=== PATIENT | female | born 1935 | race Caucasian/White ===

== ENCOUNTER → 2018-01-16 | Outpatient (CLI) | payer MEDICARE ==
--- NOTE | 2018-01-16 15:54 | WOMENS IMAGING REPORT ---
EXAM DESCRIPTION: BONE DENSITY HIP/SPINE COMPLETED DATE/TIME: 01/16/2018 12:49 pm REASON FOR STUDY: OSTEOPOROSIS Z12.31 ENCNTR SCREEN MAMMOGRAM FOR MALIGNANT NEOPLASM OF TRISTAN M81.0 AGE-RELATED OSTEOPOROSIS W/O CURRENT PATHOLOGICAL FRAC COMPARISON: None. TECHNIQUE: Dual-Energy X-ray Absorptiometry (DEXA) of the AP Spine and Hip. LIMITATIONS: None. FINDINGS: LUMBAR SPINE: The bone mineral density (BMD) measured from L1-L4 in the AP projection correlates with a T-score of -2.2, which is osteopenia as defined by the World Health Organization. HIP: The bone mineral density (BMD) measured in the left hip correlates with a T-score of -3.7 in the femo ral neck, which is osteoporosis as defined by the World Health Organization. IMPRESSION: 1. LUMBAR SPINE: OSTEOPENIA. 2. HIP: OSTEOPOROSIS. COMMENT: The World Health Organization defines low BMD as follows: T-score: Normal: Greater than -1.0 Osteopenia: Between -1.0 and -2.5 Osteoporosis: Less than -2.5 without fractures Established osteoporosis: Less than -2.5 with fractures In general, you may wish to consider: Diagnosis Treatment Follow-up DEXA Normal BMD Prevention 2-3 years Osteopenia Prevention/Therapy 1-2 years Osteoporosis Therapy Yearly TECHNICAL DOCUMENTATION: JOB ID: [id number]- All Rights Reserved Reading location - IP/workstation name: [email or web address]
--- NOTE | 2018-01-16 16:17 | WOMENS IMAGING REPORT ---
EXAM DESCRIPTION: 3D SCREENING MAMMO BILAT COMPLETED DATE/TIME: 01/16/2018 12:49 pm REASON FOR STUDY: SCREENING MAMMO Z12.31 ENCNTR SCREEN MAMMOGRAM FOR MALIGNANT NEOPLASM OF TRISTAN M81. 0 AGE-RELATED OSTEOPOROSIS W/O CURRENT PATHOLOGICAL FRAC COMPARISON: None. TECHNIQUE: Standard craniocaudal and mediolateral oblique views of each breast recorded using digita l acquisition and breast tomosynthesis. LIMITATIONS: None. FINDINGS: RIGHT BREAST MASSES: Irregular spiculated mass in the upper-outer breast, located 10 to 12 cm from the nipple. CALCIFICATIONS: No new or suspicious calcifications. ARCHITECTURAL DISTORTION: None. DEVELOPING DENSITY: None. ASYMMETRY: None noted. OTHER: No other significant findings. LEFT BREAST MASSES: No suspicious masses. CALCIFICATIONS: No new or suspicious calcifications. ARCHITECTURAL DISTORTION: None. DEVELOPING DENSITY: None. ASYMMETRY: None noted. OTHER: No other significant findings. Read with the assistance of CAD. .[facility] - R2 Cenova Version 1.3 .[facility] Imaging - R2 Cenova Version 1.3 .[facility] - R2 Cenova Version 2.4 .[facility] - R2 Cenova Version 2.4 .[facility] - R2 Elevator Operator Version 9.2 IMPRESSION: Irregular spiculated mass in the upper-outer right breast. No worrisome mammographic fi ndings in the left breast. BREAST DENSITY: b. There are scattered areas of fibroglandular density. BIRAD: 0 Incomplete: Needs Additional Imaging Evaluation and/or prior Mammograms for Comparison. RECOMMENDATION: RECOMMENDED FOLLOW-UP: Recommend additional evaluation with ultrasound of the right breast. Recommend routine screening mammography of the left breast. The patient will be contacted for additional imaging. COMMENT: The patient has been notified of the results by letter per [place] requirements. Additional no tification policies are in place for contacting patient with suspicious or incomplete findings. Quality ID #225: The [employer] recommends an annual screening mammogram for women aged 40 years or over. This facility utilizes a reminder system to ensure that all patients receive reminder letters, and/or direct phone calls for appointments. This includes reminders for routine scr eening mammograms, diagnostic mammograms, or other Breast Imaging Interventions when appropriate. Th is patient will be placed in the appropriate reminder system. The [employer] (ACR) has developed recommendations for screening MRI of the breast s in certain patient populations, to be used in conjunction with mammography. Breast MRI surveillanc e may be appropriate for women with more than 20% lifetime risk of developing breast cancer as deter mined by genetic testing, significant family history of the disease, or history of mantle radiation f or Hodgkins Disease. ACR Practice Guidelines 2008. DBT Technology DBT is a type of tomographic mammography. With conventional mammography, overlapping breast tissue ma y make lesions difficult to detect, even with good compression. DBT uses an x-ray tube that rotates a round the breast, taking images at different angles. These images are then combined to create thin sl ices of the breast that the radiologist can view as a 3D reconstruction. The [employer] unit can perform full-field digital mammograms (2D imaging); or DBT (3D imaging); or both, in a combination mode that quickly performs both the mammogram and the tomosynthesis scan while the breast is still compressed. PQRS 6045F: Fluoroscopic imaging is not utilized for breast tomosynthesis. TECHNICAL DOCUMENTATION: FINDING NUMBER: (1) ASSESSMENT: (1) JOB ID: [id number] [employer]- All Rights Reserved Reading location - IP/workstation name: [facility]
== END ==
LOC: WI 11:22
PROVIDERS: ATTEND Physician Assistant
DX: Z12.31 Encounter for screening mammogram for malignant neoplasm of breast (principal); M81.0 Age-related osteoporosis without current pathological fracture
CPT/HCPCS: 77063; 77067; 77080

== ENCOUNTER → 2018-01-23 | Outpatient (CLI) | payer MEDICARE ==
--- NOTE | 2018-01-23 14:47 | RADIOLOGY REPORT (SQ) ---
EXAM DESCRIPTION: HIP LEFT AP/LATERAL COMPLETED DATE/TIME: 01/23/2018 1:54 pm REASON FOR STUDY: LOWER ABDOMINAL PAIN, UNSPECIFIED R10.30 LOWER ABDOMINAL PAIN, UNSPECIFIED COMPARISON: None. NUMBER OF VIEWS: Two views. TECHNIQUE: AP pelvis and additional frog-leg view of the left hip. LIMITATIONS: None. FINDINGS: MINERALIZATION: Normal. LEFT HIP: Slight to mild narrowing of the left hip joint. No acute fracture dislocation. RIGHT HIP: Mild narrowing of the right joint. No acute fracture or dislocation. PUBIS AND ISCHIUM: No fracture. PELVIS: No fracture. SACRUM: No fracture or dislocation. No worrisome bone lesions. 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 SOFT TISSUES: No findings. OTHER: No other significant finding. IMPRESSION: 1 Mild narrowing of the hip joints, more so on the right. 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 3 No acute osseous findings. TECHNICAL DOCUMENTATION: JOB ID: [id number] [employer]- All Rights Reserved Reading location - IP/workstation name: [email or web address]
== END ==
LOC: OD 13:37
PROVIDERS: ATTEND Physician Assistant
DX: R10.30 Lower abdominal pain, unspecified (principal); M47.896 Other spondylosis, lumbar region

== ENCOUNTER → 2018-01-23 | Outpatient (CLI) | payer MEDICARE ==
--- NOTE | 2018-01-24 08:03 | WOMENS IMAGING REPORT ---
EXAM DESCRIPTION: U/S BREAST UNILAT LIMITED COMPLETED DATE/TIME: 01/23/2018 11:29 am REASON FOR STUDY: RIGHT BREAST LUMP N63.11 UNSPECIFIED LUMP IN THE RIGHT BREAST, UPPER OUTER PRIMITIVO COMPARISON: Tomosynthesis 01/16/2018 TECHNIQUE: Real-time and static grayscale imaging performed of the right breast targeted to the area of clinical/mammographic concern. Selected color Doppler images recorded. LIMITATIONS: None. FINDINGS: In the lateral right breast 9 to 10 o'clock position, a hypoechoic solid nodule is present with ill-defined spiculated margins right middle lobe internal color flow, 10 x 8 mm in size. This is highly suspicious for malignancy and correlates with the nodule described far lateral right breast on tomosynthesis 01/16/2018. Ultrasound-guided core biopsy and post biopsy clip placement is recommended. Findings were discussed with Bijal Mejia, 1100 hours 01/23/2018. IMPRESSION: 9 to 10 mm nodule right breast laterally at the 9 to 10 o'clock position. Highly suspic ious for malignancy. Ultrasound-guided core biopsy recommended BIRAD: 5 Highly suggestive of malignancy. Appropriate action should be taken. RECOMMENDATION: RECOMMENDED FOLLOW-UP: Ultrasound-guided core biopsy, post biopsy clip placement and immediate post biopsy follow-up two-view mammogram recommended. COMMENT: Pertinent findings on the imaging study reported as a CRITICAL RESULT to BIJAL Emerson [id number] hours on 01/23/2018. Category of Critical Result: BI-RADS 5 The [employer] (ACR) has developed recommendations for screening MRI of the breast s in certain patient populations, to be used in conjunction with mammography. Breast MRI surveillanc e may be appropriate for women with more than 20% lifetime risk of developing breast cancer as deter mined by genetic testing, significant family history of the disease, or history of mantle radiation f or Hodgkins Disease. ACR Practice Guidelines 2007. TECHNICAL DOCUMENTATION: JOB ID: [id number] [employer]- All Rights Reserved Reading location - IP/workstation name: [email or web address]
== END ==
LOC: WI 10:43
PROVIDERS: ATTEND Physician Assistant
DX: N63.11 Unspecified lump in the right breast, upper outer quadrant (principal)
CPT/HCPCS: 76642

== ENCOUNTER → 2018-08-03 | Outpatient (CLI) | payer MEDICARE ==
[2018-08-03 12:45] LABS: ANION GAP 7 (5-19); BLOOD UREA NITROGEN 16 mg/dL (7-20); CALCIUM 9.8 mg/dL (8.4-10.2); CARBON DIOXIDE 30 mmol/L (22-30); CHLORIDE 102 mmol/L (98-107); GLUCOSE 104 mg/dL (75-110); POTASSIUM 5.6 mmol/L (3.6-5.0); SODIUM 139.4 mmol/L (137-145)
== END ==
LOC: OD 11:33
PROVIDERS: ATTEND Family Medicine
DX: E87.5 Hyperkalemia (principal)
CPT/HCPCS: 36415; 80048

== ENCOUNTER → 2018-09-27 | Outpatient (CLI) | payer MEDICARE ==
--- NOTE | 2018-09-27 13:47 | WOMENS IMAGING REPORT ---
EXAM DESCRIPTION: 3D DX MAMMO RIGHT UNILAT COMPLETED DATE/TIME: 09/27/2018 1:34 pm REASON FOR STUDY: BREAST CANCER C50.411 MALIG NEOPLM OF UPPER-OUTER QUADRANT OF RIGHT FEMALE COMPARISON: None. TECHNIQUE: Standard craniocaudal and mediolateral oblique images of the breast recorded using digita l acquisition and breast tomosynthesis. Additional compression cone views right breast in the CC and MLO orientations. Additional right [address] mediolateral view. Patient underwent core needle biopsy at Dr. Kelley' office. Biopsy proven malignancy in the right breast upper outer quadrant. Malignant nodule has not been resected. LIMITATIONS: None. FINDINGS: BREAST: Right MASSES: In the upper outer quadrant right breast about 12 cm from the nipple, A previously biopsied s piculated nodule with architectural distortion is present. Nodule measures about 8 mm in greatest di ameter mammographically, stable compared to mammograms 01/16/2018. CALCIFICATIONS: No new or suspicious calcifications. ARCHITECTURAL DISTORTION: None. DEVELOPING DENSITY: None. ASYMMETRY: None noted. OTHER: No other significant findings. Read with the assistance of CAD. .[facility] - R2 Cenova Version 1.3 .[facility] Imaging - R2 Cenova Version 1.3 .[facility] Imaging - R2 Cenova Version 2.4 .[facility] - R2 Cenova Version 2.4 .[facility] - R2 Proof Plate Maker Version 9.2 IMPRESSION: Known malignant nodule right breast upper outer quadrant previously biopsied with clip p resent. Remainder of the right breast is otherwise unremarkable. BREAST DENSITY: b. There are scattered areas of fibroglandular density. BIRAD: 6 Known biopsy-proven malignancy. Appropriate action should be taken. RECOMMENDATION: RECOMMENDED FOLLOW UP: Patient is due for left breast screening in January 2019. SPECIFIC INTERVENTION/IMAGING/CONSULTATION RECOMMENDED:No additional intervention/ imaging/consultati on needed at this time. COMMUNICATION:Patient notified by letter COMMENT: The patient has been notified of the results by letter per MQSA requirements. Additional no tification policies are in place for contacting patient with suspicious or incomplete findings. Quality ID #225: The [employer] recommends an annual screening mammogram for women aged 40 years or over. This facility utilizes a reminder system to ensure that all patients receive reminder letters, and/or direct phone calls for appointments. This includes reminders for routine scr eening mammograms, diagnostic mammograms, or other Breast Imaging Interventions when appropriate. Th is patient will be placed in the appropriate reminder system. The [employer] (ACR) has developed recommendations for screening MRI of the breast s in certain patient populations, to be used in conjunction with mammography. Breast MRI surveillanc e may be appropriate for women with more than 20% lifetime risk of developing breast cancer as deter mined by genetic testing, significant family history of the disease, or history of mantle radiation f or Hodgkins Disease. ACR Practice Guidelines 2008. DBT Technology DBT is a type of tomographic mammography. With conventional mammography, overlapping breast tissue ma y make lesions difficult to detect, even with good compression. DBT uses an x-ray tube that rotates a round the breast, taking images at different angles. These images are then combined to create thin sl ices of the breast that the radiologist can view as a 3D reconstruction. The GMG33 unit can perform full-field digital mammograms (2D imaging); or DBT (3D imaging); or both, in a combination mode that quickly performs both the mammogram and the tomosynthesis scan while the breast is still compressed. PQRS 6045F: Fluoroscopic imaging is not utilized for breast tomosynthesis. TECHNICAL DOCUMENTATION: FINDING NUMBER: (1) ASSESSMENT: (1) JOB ID: [id number] [employer]- All Rights Reserved Reading location - IP/workstation name: [email or web address]-[email or web address]
== END ==
LOC: WI 12:58
PROVIDERS: ATTEND Internal Medicine Hematology & Oncology
DX: C50.411 Malignant neoplasm of upper-outer quadrant of right female breast (principal)
CPT/HCPCS: 77065; G0279

== ENCOUNTER 2019-04-14 08:52 | Inpatient (IN) | payer MEDICARE ==
[2019-04-14 09:38] LABS: HEMOGLOBIN 13.2 g/dL (12.0-15.5); MEAN CORPUSCULAR HEMOGLOBIN 35.7 pg (27.0-33.4); MEAN CORPUSCULAR HGB CONC 33.7 g/dL (32.0-36.0); MEAN CORPUSCULAR VOLUME 106 fl (80-97); PLATELET COUNT 224 10^3/uL (150-450); RED BLOOD COUNT 3.69 10^6/uL (3.72-5.28); RED CELL DISTRIBUTION WIDTH 12.9 % (11.5-14.0); WHITE BLOOD COUNT 13.5 10^3/uL (4.0-10.5)
[2019-04-14 09:53] LABS: ANION GAP 12 (5-19); BLOOD UREA NITROGEN 16 mg/dL (7-20); CALCIUM 9.3 mg/dL (8.4-10.2); CARBON DIOXIDE 26 mmol/L (22-30); CHLORIDE 100 mmol/L (98-107); GLUCOSE 205 mg/dL (75-110); POTASSIUM 3.6 mmol/L (3.6-5.0); SODIUM 138.2 mmol/L (137-145)
[2019-04-14 09:54] LABS: ALANINE AMINOTRANSFERASE 13 U/L (9-52); ALBUMIN 4.6 g/dL (3.5-5.0); ALKALINE PHOSPHATASE 89 U/L (38-126); ASPARTATE AMINO TRANSFERASE 21 U/L (14-36); BILIRUBIN,DIRECT 0.4 mg/dL (0.0-0.4); BILIRUBIN,TOTAL 0.9 mg/dL (0.2-1.3); TOTAL PROTEIN 8.4 g/dL (6.3-8.2)
[2019-04-14 09:57] LABS: ABSOLUTE LYMPHOCYTES# (MANUAL) 0.5 10^3/uL (0.5-4.7); ABSOLUTE MONOCYTES # (MANUAL) 0.3 10^3/uL (0.1-1.4); ABSOLUTE NEUTROPHILS# (MANUAL) 12.7 10^3/uL (1.7-8.2); BAND NEUTROPHILS % (MANUAL) 1 % (3-5); BASOPHILS % (MANUAL) 0 % (0-2); EOSINOPHILS % (MANUAL) 0 % (0-6); LYMPHOCYTES % (MANUAL) 4 % (13-45); MONOCYTES % (MANUAL) 2 % (3-13); PLATELET COMMENT ADEQUATE; SEGMENTED NEUTROPHILS % (MAN) 93 % (42-78); TOTAL CELLS COUNTED 100
[2019-04-14] MEDS ORDERED: ONDANSETRON HCL INJ/PF 4 MG/2 ML SDV IV ONE (10:26)
[2019-04-14] MEDS ORDERED: NORMAL SALINE 1000 ML 1,000 ML IV ONE (10:26)
[2019-04-14] MEDS ORDERED: ONDANSETRON HCL INJ/PF 4 MG/2 ML SDV ONE (10:30)
--- NOTE | 2019-04-14 10:32 | ER Document Report ---
ED General - General Chief Complaint: Nausea/Vomiting Stated Complaint: VOMITING Time Seen by Provider: 04/14/19 09:57 Primary Care Provider: FRANCOIS DOMINGUEZ MD [Primary Care Provider] - Follow up as needed TRAVEL OUTSIDE OF THE [place] IN LAST 30 DAYS: No - HPI Notes: Patient is a 83 year old female that presents to the emergency department for chief complaint of vomiting and nausea. Patient states yesterday morning she woke up feeling nauseated. She began vomiting yesterday afternoon. She states she has thrown up throughout the night. Initially her emesis was clear and light yellow. She states overnight it began to get dark. She states is now dark brown. She has no history of GI bleeding in the past. She is not on any blood thinning medications including aspirin. She denies any change in bowel movements including black or bloody stools. She had a normal soft brown bowel movement yesterday evening. She has had multiple colonoscopies in the past which were all normal. Patient reports a mild diffuse abdominal discomfort that she describes as a "gurgling" sensation. She denies any chest pain or shortness of breath. She does have some diaphoresis after vomiting but none otherwise. She denies fevers and chills. Past Medical History: Breast cancer Past Surgical History: Pelvic fracture repair Social History: Denies alcohol and tobacco Family History: Reviewed and noncontributory for presenting illness Allergies: Reviewed, see documented allergy list. REVIEW OF SYSTEMS: CONSTITUTIONAL : No fever No chills diaphoresis No recent illness EENT: No vision changes No congestion No sore throat CARDIOVASCULAR: No chest pain No palpitations RESPIRATORY: No shortness of breath No cough No difficulty breathing GASTROINTESTINAL: abdominal pain nausea vomiting No diarrhea GENITOURINARY: No dysuria No hematuria No difficulty urinating MUSCULOSKELETAL: No back pain No leg pain No arm pain SKIN: No rashes No lesions LYMPHATIC: No swollen, enlarged glands. NEUROLOGICAL: No lightheadedness No headache No weakness No paresthesias PSYCHIATRIC: No anxiety No depression PHYSICAL EXAMINATION: Vital signs reviewed, nursing noted reviewed. GENERAL: Ill-appearing, well-nourished and in no acute distress. HEAD: Atraumatic, normocephalic. EYES: Eyes appear normal, extraocular movements intact, sclera anicteric, conjunctiva are normal. ENT: nares patent, oropharynx clear without exudates. Mildly dry mucous membranes. NECK: Normal range of motion, supple without lymphadenopathy LUNGS: Breath sounds clear to auscultation bilaterally and equal. No wheezes rales or rhonchi. HEART: Tachycardic rate and regular rhythm without murmurs ABDOMEN: Soft, mild epigastric tenderness. No rebound, guarding, or rigidity. No masses appreciated. EXTREMITIES: Nontender, good range of motion, no pitting or edema. NEUROLOGICAL: No focal neurological deficits. Moves all extremities spontaneously Motor and sensory grossly intact on exam. PSYCH: Normal mood, normal affect. SKIN: Warm, Dry, normal turgor, no rashes or lesions noted on exposed skin - Related Data Allergies/Adverse Reactions: Sulfa (Sulfonamide Antibiotics) Allergy (Verified 04/14/19 10:45) Past Medical History - Social History Smoking Status: Never Smoker Chew tobacco use (# tins/day): No Frequency of alcohol use: None Drug Abuse: None Family History: Reviewed & Not Pertinent Patient has suicidal ideation: No Patient has homicidal ideation: No - Past Medical History Cardiac Medical History: Reports: Hx Hypertension Denies: Hx Heart Attack Pulmonary Medical History: Denies: Hx Asthma Neurological Medical History: Denies: Hx Cerebrovascular Accident, Hx Seizures Renal/ Medical History: Denies: Hx Peritoneal Dialysis GI Medical History: Denies: Hx Hepatitis, Hx Hiatal Hernia, Hx Ulcer Infectious Medical History: Denies: Hx Hepatitis Past Surgical History: Denies: Hx Hysterectomy, Hx Mastectomy, Hx Open Heart Surgery, Hx Pacemaker - Immunizations Hx Diphtheria, Pertussis, Tetanus Vaccination: Yes Physical Exam - Vital signs Vitals: Temp Pulse Resp BP Pulse Ox 98.1 F 70 20 147/67 H 100 04/14/19 09:15 04/14/19 09:15 04/14/19 09:15 04/14/19 09:15 04/14/19 09:15 Course - Re-evaluation Re-evalutation: 04/14/19 10:30 Vitals reviewed. Nursing notes reviewed. Patient appears ill and nauseated. She will be given IV fluids and Zofran for symptom medic management. She does have some mild epigastric tenderness. The history of her emesis going from ravinder r to dark brown is concerning for possible upper GI bleeding which may be related to Anne-Marie-Schrader from her continued vomiting. Patient has a normal hemoglobin currently. She has no apparent leukocytosis. Patient did eat at a [employer] restaurant the night prior to onset of symptoms. CT scan will be ordered to evaluate her abdominal discomfort further. Patient will continue to be monitored 04/14/19 12:16 Patient continued to vomit after receiving Zofran. Her QT was borderline on EKG and she was given Phenergan for further nausea control MT. Patient CT scan shows no acute intra-abdominal process. She has normal renal function and electrolytes. Patient does have a mild leukocytosis at 13. Her hemoglobin is currently stable and she is not tachycardic. Patient is Gastroccult positive. She was given IV Protonix. She has no history of varicocele bleeding and is not anticoagulated. I suspect she does have a small Anne-Marie-Schrader tear versus gastritis causing the bleeding. Patient will be admitted to the hospital for monitoring of her intractable vomiting and hematemesis. I discussed her care with Dr. Vega. Patient was able to provide a urine sample but it then spilled and a sample was not able to obtain. It took 3 hours to obtain that sample. Because of her leukocytosis and possible acute UTI a single dose of Rocephin will be administered until urine sample can be obtained. Patient in agreement with plan of care and stable at time of admission Laboratory 04/14/19 04/14/19 04/14/19 09:10 09:10 09:10 WBC 13.5 H RBC 3.69 L Hgb 13.2 Hct 39.0 MCV 106 H MCH 35.7 H MCHC 33.7 RDW 12.9 Plt Count 224 Total Counted 100 Seg Neutrophils % Not Reportable Seg Neuts % (Manual) 93 H Band Neutrophils % 1 L Lymphocytes % Not Reportable Lymphocytes % (Manual) 4 L Monocytes % Not Reportable Monocytes % (Manual) 2 L Eosinophils % Not Reportable Eosinophils % (Manual) 0 Basophils % Not Reportable Basophils % (Manual) 0 Absolute Neutrophils Not Reportable Abs Neuts (Manual) 12.7 H Absolute Lymphocytes Not Reportable Abs Lymphs (Manual) 0.5 Absolute Monocytes Not Reportable Abs Monocytes (Manual) 0.3 Absolute Eosinophils Not Reportable Absolute Eos (Manual) 0.0 Absolute Basophils Not Reportable Abs Basophils (Manual) 0.0 Platelet Comment ADEQUATE Sodium 138.2 Potassium 3.6 Chloride 100 Carbon Dioxide 26 Anion Gap 12 BUN 16 Creatinine 0.74 Est GFR ( Amer) > 60 Est GFR (Non-Af Amer) > 60 Glucose 205 H Calcium 9.3 Total Bilirubin 0.9 Direct Bilirubin 0.4 Neonat Total Bilirubin Not Reportable Neonat Direct Bilirubin Not Reportable Neonat Indirect Bili Not Reportable AST 21 ALT 13 Alkaline Phosphatase 89 Troponin I < 0.012 Total Protein 8.4 H Albumin 4.6 Blood Type Antibody Screen 04/14/19 10:45 WBC RBC Hgb Hct MCV MCH MCHC RDW Plt Count Total Counted Seg Neutrophils % Seg Neuts % (Manual) Band Neutrophils % Lymphocytes % Lymphocytes % (Manual) Monocytes % Monocytes % (Manual) Eosinophils % Eosinophils % (Manual) Basophils % Basophils % (Manual) Absolute Neutrophils Abs Neuts (Manual) Absolute Lymphocytes Abs Lymphs (Manual) Absolute Monocytes Abs Monocytes (Manual) Absolute Eosinophils Absolute Eos (Manual) Absolute Basophils Abs Basophils (Manual) Platelet Comment Sodium Potassium Chloride Carbon Dioxide Anion Gap BUN Creatinine Est GFR ( Amer) Est GFR (Non-Af Amer) Glucose Calcium Total Bilirubin Direct Bilirubin Neonat Total Bilirubin Neonat Direct Bilirubin Neonat Indirect Bili AST ALT Alkaline Phosphatase Troponin I Total Protein Albumin Blood Type Cancelled Antibody Screen Cancelled Abdomen/Pelvis CT 04/14/19 10:27 IMPRESSION: Diverticulosis without evidence of diverticulitis. - Vital Signs Vital signs: Temp Pulse Resp BP Pulse Ox 98.1 F 70 20 147/67 H 100 04/14/19 09:15 04/14/19 09:15 04/14/19 09:15 04/14/19 09:15 04/14/19 09:15 - Laboratory Result Diagrams: 04/14/19 09:10 04/14/19 09:10 Laboratory results interpreted by me: 04/14/19 04/14/19 09:10 09:10 WBC 13.5 H RBC 3.69 L MCV 106 H MCH 35.7 H Seg Neuts % (Manual) 93 H Band Neutrophils % 1 L Lymphocytes % (Manual) 4 L Monocytes % (Manual) 2 L Abs Neuts (Manual) 12.7 H Glucose 205 H Total Protein 8.4 H - EKG Interpretation by Me Additional EKG results interpreted by me: 04/14/19 10:31 Interpreted by myself [id number]: Sinus tachycardia, rate 100, normal axis, PVCs, no STEMI Discharge - Discharge Clinical Impression: Gastroenteritis Hematemesis Qualifiers: Nausea presence: with nausea Qualified Code(s): K92.0 - Hematemesis Intractable vomiting Qualifiers: Vomiting type: unspecified Nausea presence: with nausea Qualified Code(s): R11.2 - Nausea with vomiting, unspecified Condition: Stable Disposition: ADMITTED INPATIENT Admitting Provider: Gary Unit Admitted: Medical Floor
--- NOTE | 2019-04-14 11:41 | RADIOLOGY REPORT (SQ) ---
EXAM DESCRIPTION: CT ABD/PELVIS WITH IV ONLY COMPLETED DATE/TIME: 04/14/2019 11:27 am REASON FOR STUDY: abdominal pain COMPARISON: None. TECHNIQUE: CT scan of the abdomen and pelvis performed using helical scanning technique with dynamic intravenous contrast injection. No oral contrast. Images reviewed with lung, soft tissue, and bone windows. Reconstructed coronal and sagittal MPR images reviewed. Delayed images were not acquired. Al l images stored on PACS. All CT scanners at this facility use dose modulation, iterative reconstruction, and/or weight based d osing when appropriate to reduce radiation dose to as low as reasonably achievable (ALARA). [facility]: Dose Right [facility]: CareDose [facility]: Dose Right [facility]: Teradose 4D [facility]: Shippo CONTRAST TYPE AND DOSE: 100 cc Isovue 370- low osmolar. RENAL FUNCTION: GFR > 60. RADIATION DOSE: CT Rad equipment meets quality standard of care and radiation dose reduction techniq ues were employed. CTDIvol: 12.6 mGy. DLP: 838 mGy-cm.. LIMITATIONS: Artifact from SI joint effusion. FINDINGS: LOWER CHEST: Hiatal hernia. LIVER: Normal size. No masses. No dilated ducts. SPLEEN: Normal size. No focal lesions. PANCREAS: No masses. No significant calcifications. No adjacent inflammation or peripancreatic fluid collections. Pancreatic duct not dilated. GALLBLADDER: No identified stones by CT criteria. No inflammatory changes to suggest cholecystitis. ADRENAL GLANDS: No significant masses or asymmetry. RIGHT KIDNEY AND URETER: No solid masses. No significant calcifications. No hydronephrosis or hyd roureter. LEFT KIDNEY AND URETER: No solid masses. No significant calcifications. No hydronephrosis or hydr oureter. AORTA AND VESSELS: No aneurysm. RETROPERITONEUM: No retroperitoneal adenopathy, hemorrhage or masses. BOWEL AND PERITONEAL CAVITY: Diffuse diverticulosis. No evidence of diverticulitis. No ascites or f ree air. APPENDIX: Normal. PELVIS: No mass. No free fluid. Normal bladder. ABDOMINAL WALL: No masses. No hernias. BONES: Old left inferior pubic ramus fracture. No acute findings. OTHER: No other significant finding. IMPRESSION: Diverticulosis without evidence of diverticulitis. TECHNICAL DOCUMENTATION: JOB ID: [id number] Quality ID # [id number]: Final reports with documentation of one or more dose reduction techniques (e.g., Au tomated exposure control, adjustment of the mA and/or kV according to patient size, use of iterative reconstruction technique) 2010 [employer]- All Rights Reserved Reading location - IP/workstation name: [email or web address]
[2019-04-14] MEDS ORDERED: PROMETHAZINE HCL 25 MG SUPP.RECT PR ONE (12:04)
[2019-04-14] MEDS ORDERED: CEFTRIAXONE INJ 1000 MG VIAL IV ONE (12:14)
[2019-04-14] MEDS ORDERED: PANTOPRAZOLE SODIUM 40 MG VIAL IV ONE (12:15)
[2019-04-14 15:04] LABS: APPEARANCE,URINE CLEAR; BILIRUBIN,URINE NEGATIVE (NEGATIVE); COLOR,URINE STRAW; GLUCOSE, URINE 150 mg/dL (NEGATIVE); KETONES,URINE 20 mg/dL (NEGATIVE); LEUKOCYTE ESTERASE,URINE NEGATIVE (NEGATIVE); NITRITE,URINE NEGATIVE (NEGATIVE); PROTEIN,URINE 30 mg/dL (NEGATIVE); URINE SPECIFIC GRAVITY 1.033; UROBILINOGEN,URINE NEGATIVE mg/dL (<2.0)
--- NOTE | 2019-04-14 16:00 | PDOC H&P ---
History of Present Illness Admission Date/PCP: 04/14/19 12:47 ANNETTA DOMINGUEZ MD Patient complains of: Nausea and Vomiting History of Present Illness: ELLIOT WANG is a 83 year old female patient of Dr. Annetta Dominguez who presented to the ED with complain of nausea and vomiting. She reported onset of nausea yesterday morning and by last night she started vomiting all through the night necessitating her coming to the ED. She reported associated abdominal discomfort from her recurrent vomiting. She denied any diarrhea. She reported eating at a local [employer] restaurant the night prior to onset of her symptoms. Her spouse at bedside during my visit admitted to eating at same restaurant by denied similar symptoms. she denied associated fever, chills, dysuria, flank pain or hematuria. She denied similar symptoms in the past. No chest pain or difficulty with breathing. she denied any aspiration on her vomitus. Her initial evaluation n the ED was remarkable for leukocytosis, slight epigastric tenderness and gastric content occult blood testing positive status. In view of concern for possible GI bleeding process, UTI, and intractable vomiting, she was advised admission for further evaluation and management. Her morbidities include hypertension, anemia, and breast cancer currently on Letrozole treatment with Dr. Maharaj. Past Medical History Cardiac Medical History: Reports: Hypertension Denies: Myocardial Infarction Pulmonary Medical History: Denies: Asthma Neurological Medical History: Denies: Seizures Malignancy Medical History: Reports: Breast Cancer GI Medical History: Denies: Hepatitis, Hiatal Hernia Psychiatric Medical History: Denies: Depression Hematology: Reports: Anemia Denies: Sickle Cell Disease Past Surgical History Past Surgical History: Denies: Amputation, Hysterectomy, Mastectomy, Pacemaker Social History Smoking Status: Former Smoker Frequency of Alcohol Use: Social Hx Recreational Drug Use: No Drugs: None Hx Prescription Drug Abuse: No - Advance Directive Resuscitation Status: Full Code Family History Family History: Reviewed & Not Pertinent Parental Family History Reviewed: Yes Children Family History Reviewed: Yes Sibling(s) Family History Reviewed.: Yes Medication/Allergy Home Medications: Amlodipine Besylate [Norvasc 5 mg Tablet] 5 mg PO DAILY 04/14/19 Ergocalciferol (Vitamin D2) [Drisdol 50,000 unit (1.25MG) Capsule] 50,000 unit PO Q7D 04/14/19 Fluticasone Propionate [Flonase Nasal [place] 50 Mcg/[place] 16 gm] 2 sprays NASL D AILY 04/14/19 Gabapentin [Neurontin 100 mg Capsule] 200 mg PO BID 04/14/19 Letrozole [Femara 2.5 mg Tablet] 2.5 mg PO DAILY 04/14/19 Nystatin 1 applic TOP BID 04/14/19 Allergies/Adverse Reactions: Sulfa (Sulfonamide Antibiotics) Allergy (Verified 04/14/19 10:45) Review of Systems Constitutional: ABSENT: chills, fever(s), headache(s), weight gain, weight loss Eyes: ABSENT: visual disturbances Ears: ABSENT: hearing changes Nose, Mouth, and Throat: ABSENT: as per HPI, headache(s), mouth pain, sore throat, vertigo, other Cardiovascular: ABSENT: chest pain, dyspnea on exertion, edema, orthropnea, palpitations Respiratory: ABSENT: cough, hemoptysis Gastrointestinal: PRESENT: abdominal pain - epigastric region, nausea, vomiting. ABSENT: as per HPI, bloating, coffee ground emesis, constipation, diarrhea, dysphagia, heartburn, hematemesis, hematochezia, melena, other Genitourinary: ABSENT: dysuria, hematuria Musculoskeletal: ABSENT: joint swelling Integumentary: ABSENT: rash, wounds Neurological: ABSENT: abnormal gait, abnormal speech, confusion, dizziness, focal weakness, syncope Psychiatric: ABSENT: anxiety, depression, homidical ideation, suicidal ideation Endocrine: ABSENT: cold intolerance, heat intolerance, polydipsia, polyuria Hematologic/Lymphatic: ABSENT: easy bleeding, easy bruising, lymphadenopathy Allergic/Immunologic: ABSENT: seasonal rhinorrhea Physical Exam Vital Signs: Temp Pulse Resp BP Pulse Ox 98.4 F 105 H 16 147/69 H 97 04/14/19 14:18 04/14/19 14:18 04/14/19 14:18 04/14/19 14:18 04/14/19 14:18 Intake & Output 04/13/19 04/14/19 04/15/19 06:59 06:59 06:59 Intake Total 1000 Balance 1000 Weight 63.8 kg General appearance: PRESENT: no acute distress, well-developed, well-nourished Head exam: PRESENT: atraumatic, normocephalic Eye exam: PRESENT: conjunctiva pink, EOMI, PERRLA. ABSENT: scleral icterus Ear exam: PRESENT: normal external ear exam Mouth exam: PRESENT: moist Neck exam: PRESENT: full ROM. ABSENT: carotid bruit, JVD, lymphadenopathy, thyromegaly Respiratory exam: PRESENT: clear to auscultation rj Cardiovascular exam: PRESENT: irregular rhythm - intermittent, +S1, +S2. ABSENT: diastolic murmur, rubs, systolic murmur Vascular exam: ABSENT: pallor GI/Abdominal exam: PRESENT: normal bowel sounds, soft. ABSENT: distended, guarding, mass, organolmegaly, rebound, tenderness Rectal exam: PRESENT: deferred Extremities exam: PRESENT: pedal edema - peroid chronic and mainly in her right leg Musculoskeletal exam: ABSENT: tenderness Neurological exam: PRESENT: alert, awake, oriented to person, oriented to place, oriented to time, oriented to situation, CN II-XII grossly intact. ABSENT: motor sensory deficit Psychiatric exam: PRESENT: appropriate affect, normal mood. ABSENT: homicidal ideation, suicidal ideation Skin exam: PRESENT: dry, warm Results Laboratory Results: 04/14/19 09:10 04/14/19 09:10 04/14/19 04/14/19 04/14/19 09:10 09:10 10:45 WBC 13.5 H RBC 3.69 L Hgb 13.2 Hct 39.0 MCV 106 H MCH 35.7 H MCHC 33.7 RDW 12.9 Plt Count 224 Seg Neutrophils % Not Reportable Lymphocytes % Not Reportable Monocytes % Not Reportable Eosinophils % Not Reportable Basophils % Not Reportable Absolute Neutrophils Not Reportable Absolute Lymphocytes Not Reportable Absolute Monocytes Not Reportable Absolute Eosinophils Not Reportable Absolute Basophils Not Reportable Sodium 138.2 Potassium 3.6 Chloride 100 Carbon Dioxide 26 Anion Gap 12 BUN 16 Creatinine 0.74 Est GFR ( Amer) > 60 Est GFR (Non-Af Amer) > 60 Glucose 205 H Calcium 9.3 Total Bilirubin 0.9 AST 21 ALT 13 Alkaline Phosphatase 89 Total Protein 8.4 H Albumin 4.6 Urine Color Urine Appearance Urine pH Ur Specific [place] Urine Protein Urine Glucose (UA) Urine Ketones Urine Blood Urine Nitrite Ur Leukocyte Esterase Urine WBC (Auto) Urine RBC (Auto) Blood Type Cancelled Antibody Screen Cancelled 04/14/19 04/14/19 11:40 14:50 WBC RBC Hgb Hct MCV MCH MCHC RDW Plt Count Seg Neutrophils % Lymphocytes % Monocytes % Eosinophils % Basophils % Absolute Neutrophils Absolute Lymphocytes Absolute Monocytes Absolute Eosinophils Absolute Basophils Sodium Potassium Chloride Carbon Dioxide Anion Gap BUN Creatinine Est GFR ( Amer) Est GFR (Non-Af Amer) Glucose Calcium Total Bilirubin AST ALT Alkaline Phosphatase Total Protein Albumin Urine Color STRAW Urine Appearance CLEAR Urine pH 8.0 Ur Specific [place] 1.033 Urine Protein 30 H Urine Glucose (UA) 150 H Urine Ketones 20 H Urine Blood NEGATIVE Urine Nitrite NEGATIVE Ur Leukocyte Esterase NEGATIVE Urine WBC (Auto) 2 Urine RBC (Auto) 2 Blood Type O POSITIVE Antibody Screen NEGATIVE 04/14/19 09:10 Troponin I < 0.012 Impressions: Abdomen/Pelvis CT 04/14/19 10:27 IMPRESSION: Diverticulosis without evidence of diverticulitis. Assessment & Plan - Diagnosis (1) Intractable vomiting Qualifiers: Vomiting type: unspecified Nausea presence: with nausea Qualified Code(s): R11.2 - Nausea with vomiting, unspecified Is this a current diagnosis for this admission?: Yes Plan: See covering attending physician orders fir details of care plan. (2) Gastroenteritis Is this a current diagnosis for this admission?: Yes Plan: See covering attending physician orders fir details of care plan. (3) Abnormal urinalysis Is this a current diagnosis for this admission?: Yes Plan: See covering attending physician orders fir details of care plan. (4) HTN (hypertension) Qualifiers: Hypertension type: essential hypertension Qualified Code(s): I10 - Essential (primary) hypertension Is this a current diagnosis for this admission?: Yes Plan: See covering attending physician orders fir details of care plan. (5) Anemia, chronic disease Is this a current diagnosis for this admission?: Yes Plan: See covering attending physician orders fir details of care plan. (6) Breast cancer, right breast Qualifiers: Breast location: unspecified site of breast Estrogen receptor status: unspecified Patient sex: female Qualified Code(s): C50.911 - Malignant neoplasm of unspecified site of right female breast Is this a current diagnosis for this admission?: Yes Plan: See covering attending physician orders fir details of care plan. - Time Time Spent: 50 to 70 Minutes Medications reviewed and adjusted accordingly: Yes Anticipated discharge: Home with Homehealth Within: Other - Inpatient Certification Based on my medical assessment, after consideration of the patient's comorbi dities, presenting symptoms, or acuity I expect that the services needed warrant INPATIENT care.: Yes I certify that my determination is in accordance with my understanding of Medicare's requirements for reasonable and necessary INPATIENT services [42 CFR 412.3e].: Yes Medical Necessity: Significant Comorbidiites Make Outpatient Treatment Too Risky, Need Close Monitoring Due to Risk of Patient Decompensation, Need For IV Fluids, Need for IV Antibiotics, Risk of Complication if Not Cared For in Hospital, Risk of Diagnosis Which Will Require Inpatient Eval/Care/Monitoring Post Hospital Care: D/C [employer] Documentation - Plan Summary Plan Summary: See covering attending physician orders fir details of care plan.
[2019-04-14] MEDS ORDERED: (PENDING PHARMACY ID) (Acetaminophen [Tylenol Extra Strength 500 Mg Tablet] 500 MG) PO PRN (16:04)
[2019-04-14] MEDS: PANTOPRAZOLE SODIUM 40 MG TABLET.DR PO SCH (17:08)
[2019-04-14] MEDS: GABAPENTIN 100 MG CAPSULE PO SCH (17:08)
[2019-04-14] MEDS: NYSTATIN TOPICAL POWDER 15 GM TP SCH (17:09)
[2019-04-14] MEDS: NORMAL SALINE 1000 ML 1,000 ML IV PRN (17:12)
[2019-04-14] MEDS: ONDANSETRON HCL INJ/PF 4 MG/2 ML SDV IV PRN (17:21)
[2019-04-14] MEDS ORDERED: (PENDING PHARMACY ID) (Nystatin [Nystatin] 1 APPLIC) TOP SCH (18:00)
[2019-04-14] MEDS: ACETAMINOPHEN 325 MG TABLET PO PRN (21:28)
[2019-04-15] MEDS: NORMAL SALINE 1000 ML 1,000 ML IV PRN ×2 (03:32→19:15)
[2019-04-15] MEDS: PANTOPRAZOLE SODIUM 40 MG TABLET.DR PO SCH ×2 (05:45→17:11)
[2019-04-15] MEDS: ONDANSETRON HCL INJ/PF 4 MG/2 ML SDV IV PRN ×3 (05:48→21:49)
[2019-04-15 05:57] LABS: ABSOLUTE LYMPHOCYTES (AUTO) 0.8 10^3/uL (0.5-4.7); ABSOLUTE MONOCYTES (AUTO) 0.9 10^3/uL (0.1-1.4); ABSOLUTE NEUT (AUTO) 10.8 10^3/uL (1.7-8.2); BASOPHILS % (AUTO) 0.1 % (0-2); HEMATOCRIT 36.3 % (36.0-47.0); HEMOGLOBIN 12.1 g/dL (12.0-15.5); LYMPHOCYTES % (AUTO) 6.5 % (13-45); MEAN CORPUSCULAR HEMOGLOBIN 35.9 pg (27.0-33.4); MEAN CORPUSCULAR HGB CONC 33.3 g/dL (32.0-36.0); MEAN CORPUSCULAR VOLUME 108 fl (80-97); MONOCYTES % (AUTO) 7.3 % (3-13); PLATELET COUNT 172 10^3/uL (150-450); RED BLOOD COUNT 3.37 10^6/uL (3.72-5.28); RED CELL DISTRIBUTION WIDTH 12.7 % (11.5-14.0); SEGMENTED NEUTROPHILS % (AUTO) 86.1 % (42-78); TOTAL CELLS COUNTED % (AUTO) 100 %; WHITE BLOOD COUNT 12.5 10^3/uL (4.0-10.5)
[2019-04-15 06:14] LABS: ALANINE AMINOTRANSFERASE 13 U/L (9-52); ALBUMIN 3.7 g/dL (3.5-5.0); ALKALINE PHOSPHATASE 57 U/L (38-126); ANION GAP 10 (5-19); ASPARTATE AMINO TRANSFERASE 15 U/L (14-36); BILIRUBIN,DIRECT 0.2 mg/dL (0.0-0.4); BILIRUBIN,TOTAL 0.6 mg/dL (0.2-1.3); BLOOD UREA NITROGEN 16 mg/dL (7-20); CALCIUM 7.9 mg/dL (8.4-10.2); CARBON DIOXIDE 22 mmol/L (22-30); CHLORIDE 109 mmol/L (98-107); GLUCOSE 104 mg/dL (75-110); POTASSIUM 3.5 mmol/L (3.6-5.0); TOTAL PROTEIN 6.7 g/dL (6.3-8.2)
[2019-04-15] MEDS: ACETAMINOPHEN 325 MG TABLET PO PRN ×3 (06:32→21:49)
[2019-04-15] MEDS: GABAPENTIN 100 MG CAPSULE PO SCH ×2 (09:03→17:11)
[2019-04-15] MEDS: FLUTICASONE NASAL SPRAY 50 MCG/SPRY 120 SPRAY/16 GM NASL SCH (09:03)
[2019-04-15] MEDS: ENOXAPARIN SODIUM INJ 40 MG/0.4 ML DISP.SYRIN SUBCUT SCH (09:03)
[2019-04-15] MEDS: LETROZOLE 2.5 MG TABLET PO SCH (09:03)
[2019-04-15] MEDS: AMLODIPINE BESYLATE 5 MG TABLET PO SCH (09:03)
[2019-04-15] MEDS: NYSTATIN TOPICAL POWDER 15 GM TP SCH ×2 (09:05→17:47)
[2019-04-15] MEDS ORDERED: CEFTRIAXONE 1 GM/D5W RTU 1 GM/50 ML RTUPB IV SCH (10:00)
[2019-04-15] MEDS: CEFTRIAXONE SODIUM 1,000 MG in DEXTROSE 5%-WATER 50 ML IV SCH (11:25)
[2019-04-15] MEDS: BENZOCAINE/MENTHOL SORE THROAT LOZENGE BUCCAL PRN ×2 (15:01→17:11)
[2019-04-15] MEDS: POTASSI CL 20 MEQ/50 ML RIDER 20 MEQ/50 ML RTUPB IV SCH ×3 (15:02→19:21)
--- NOTE | 2019-04-15 22:39 | EKG REPORT ---
SEVERITY:- BORDERLINE ECG - SINUS TACHYCARDIA ATRIAL PREMATURE COMPLEX BORDERLINE PROLONGED QT INTERVAL : Confirmed by: Manuelito Smith MD 15-Apr-2019 22:38:28
[2019-04-16] MEDS: NORMAL SALINE 1000 ML 1,000 ML IV PRN ×3 (05:15→09:57)
[2019-04-16] MEDS: PANTOPRAZOLE SODIUM 40 MG TABLET.DR PO SCH ×2 (06:14→17:12)
[2019-04-16] MEDS: ACETAMINOPHEN 325 MG TABLET PO PRN ×2 (06:18→17:13)
--- NOTE | 2019-04-16 08:47 | PDOC CONSULTATION ---
Consultation Consult Date: 04/16/19 Attending physician:: FRANCOIS DOMINGUEZ Provider Consulted: ELLE REYES Consult reason:: Patient with early stage breast cancer on endocrine therapy here with what sounds like gastroenteritis History of Present Illness Admission Date/PCP: 04/14/19 12:47 FRANCOIS DOMINGUEZ MD Patient complains of: Nausea vomiting History of Present Illness: ELLIOT WANG is a 83 year old female presents with 48 h history of nausea and vomiting, she remembers going to [employer] somewhere in the evening of , Tuesday afternoon she began having nausea and then Tuesday night had intractable nausea and vomiting. Ultimately she came here on Tuesday, very dehydrated and weak. She has been getting aggressive IV hydrations as well as antiemetics. She had CT of the abdomen pelvis which only showed diverticulosis without diverticulitis. She has known history of diverticulosis. Otherwise she is feeling better today. In terms of her breast cancer she had early stage breast cancer diagnosed about a year ago, ultimately she decided against primary surgery and has been only on primary endocrine therapy with letrozole and also bone modifying therapy with Prolia. Past Medical History Cardiac Medical History: Reports: Hypertension Denies: Myocardial Infarction Pulmonary Medical History: Denies: Asthma Neurological Medical History: Denies: Seizures Malignancy Medical History: Reports: Breast Cancer GI Medical History: Denies: Hepatitis, Hiatal Hernia Psychiatric Medical History: Denies: Depression Hematology: Reports: Anemia Denies: Sickle Cell Disease Past Surgical History Past Surgical History: Denies: Amputation, Hysterectomy, Mastectomy, Pacemaker Social History Information Source: Patient Smoking Status: Former Smoker Frequency of Alcohol Use: Social Hx Recreational Drug Use: No Drugs: None Hx Prescription Drug Abuse: No - Advance Directive Resuscitation Status: Full Code Family History Family History: Reviewed & Not Pertinent Parental Family History Reviewed: Yes Children Family History Reviewed: Yes Sibling(s) Family History Reviewed.: Yes Medication/Allergy Home Medications: Acetaminophen [Tylenol Extra Strength 500 mg Tablet] 500 mg PO Q6HP PRN 04/14/19 Amlodipine Besylate [Norvasc 5 mg Tablet] 5 mg PO DAILY 04/14/19 Ergocalciferol (Vitamin D2) [Drisdol 50,000 unit (1.25MG) Capsule] 50,000 unit PO TU 04/14/19 Fluticasone Propionate [Flonase Nasal [place] 50 Mcg/[place] 16 gm] 2 sprays NASL DAILY 04/14/19 Gabapentin [Neurontin 100 mg Capsule] 200 mg PO BID 04/14/19 Letrozole [Femara 2.5 mg Tablet] 2.5 mg PO DAILY 04/14/19 Nystatin 1 applic TOP BIDP PRN 04/14/19 Allergies/Adverse Reactions: Sulfa (Sulfonamide Antibiotics) Allergy (Verified 04/14/19 10:45) Review of Systems Constitutional: ABSENT: chills, fever(s), headache(s), weight gain, weight loss Eyes: ABSENT: visual disturbances Ears: ABSENT: hearing changes Cardiovascular: ABSENT: chest pain, dyspnea on exertion, edema, orthropnea, palpitations Respiratory: ABSENT: cough, hemoptysis Gastrointestinal: ABSENT: abdominal pain, constipation, diarrhea, hematemesis, hematochezia, nausea, vomiting Genitourinary: ABSENT: dysuria, hematuria Musculoskeletal: ABSENT: joint swelling Integumentary: ABSENT: rash, wounds Neurological: ABSENT: abnormal gait, abnormal speech, confusion, dizziness, focal weakness, syncope Psychiatric: ABSENT: anxiety, depression, homidical ideation, suicidal ideation Endocrine: ABSENT: cold intolerance, heat intolerance, polydipsia, polyuria Hematologic/Lymphatic: ABSENT: easy bleeding, easy bruising Physical Exam Vital Signs: Temp Pulse Resp BP Pulse Ox 99.1 F 100 18 153/67 H 91 L 04/15/19 19:54 04/15/19 19:54 04/15/19 19:54 04/15/19 19:54 04/15/19 19:54 Intake & Output 04/15/19 04/16/19 04/17/19 06:59 06:59 06:59 Intake Total 1999 2410 273 Output Total 200 500 Balance 1800 1910 273 Weight 84.6 kg 84.6 kg General appearance: PRESENT: no acute distress, well-developed, well-nourished Head exam: PRESENT: atraumatic, normocephalic Eye exam: PRESENT: conjunctiva pink, EOMI, PERRLA. ABSENT: scleral icterus Ear exam: PRESENT: normal external ear exam Mouth exam: PRESENT: moist, tongue midline Neck exam: ABSENT: carotid bruit, JVD, lymphadenopathy, thyromegaly Respiratory exam: PRESENT: clear to auscultation rj. ABSENT: rales, rhonchi, wheezes Cardiovascular exam: PRESENT: RRR. ABSENT: diastolic murmur, rubs, systolic murmur Pulses: PRESENT: normal dorsalis pedis pul Vascular exam: PRESENT: normal capillary refill GI/Abdominal exam: PRESENT: normal bowel sounds, soft. ABSENT: distended, guarding, mass, organolmegaly, rebound, tenderness Rectal exam: PRESENT: deferred Extremities exam: PRESENT: full ROM. ABSENT: calf tenderness, clubbing, pedal edema Neurological exam: PRESENT: alert, awake, oriented to person, oriented to place, oriented to time, oriented to situation, CN II-XII grossly intact. ABSENT: motor sensory deficit Psychiatric exam: PRESENT: appropriate affect, normal mood. ABSENT: homicidal ideation, suicidal ideation Skin exam: PRESENT: dry, intact, warm. ABSENT: cyanosis, rash Results Laboratory Results: 04/15/19 05:42 04/15/19 05:42 04/15/19 05:23 Magnesium 1.6 04/14/19 14:50 Clean Catch Midstream Urine Culture - Final Mixed Urogenital Mara 04/14/19 09:10 Troponin I < 0.012 Impressions: Abdomen/Pelvis CT 04/14/19 10:27 IMPRESSION: Diverticulosis without evidence of diverticulitis. Assessment & Plan - Diagnosis (1) Hematemesis Qualifiers: Nausea presence: with nausea Qualified Code(s): K92.0 - Hematemesis Plan: Probably secondary to a primary gastroenteritis, continue with hydration per primary team (2) Intractable vomiting Qualifiers: Vomiting type: unspecified Nausea presence: with nausea Qualified Code(s): R11.2 - Nausea with vomiting, unspecified Is this a current diagnosis for this admission?: Yes Plan: Probably secondary to gastroenteritis, continue with antiemetics and hydration per primary team (3) Breast cancer, right breast Qualifiers: Breast location: upper outer quadrant of breast Estrogen receptor status: positive Patient sex: female Qualified Code(s): C50.411 - Malignant neoplasm of upper-outer quadrant of right female breast; Z17.0 - Estrogen receptor positive status [ER+] Is this a current diagnosis for this admission?: Yes Plan: Endocrine therapy can be held while she is inpatient, as she is having the nausea and vomiting and then restarted thereafter.
--- NOTE | 2019-04-16 09:31 | PDOC PROGRESS REPORT ---
Subjective Progress Note for:: 04/16/19 Subjective:: Patient was admitted because of the abdominal pain nausea vomiting and possible gastroenteritis Patient CT scan of the abdomen and pelvis did not show any acute findings Patient's had a colonoscopy done twice in [place] in 2013 and after that probably one time not sure exactly when Patient is denied any chest pain to than any shortness of the breath Patient had a chronic back problem and currently taking the gabapentin Patient also currently see oncology for the breast cancer and currently taking the p.o. medications Patients actually feel better after the IV fluids Reason For Visit: INTRACTABKLE NAUSEA AND VOMITING; GASTROENTERITIS; Physical Exam Vital Signs: Temp Pulse Resp BP Pulse Ox 99.1 F 100 18 153/67 H 91 L 04/15/19 19:54 04/15/19 19:54 04/15/19 19:54 04/15/19 19:54 04/15/19 19:54 Intake & Output 04/15/19 04/16/19 04/17/19 06:59 06:59 06:59 Intake Total 1999 2410 273 Output Total 200 500 Balance 1800 1910 273 Weight 84.6 kg 84.6 kg General appearance: PRESENT: no acute distress, well-developed, well-nourished Head exam: PRESENT: atraumatic, normocephalic Eye exam: PRESENT: conjunctiva pink, EOMI, PERRLA. ABSENT: scleral icterus Ear exam: PRESENT: normal external ear exam Mouth exam: PRESENT: moist, tongue midline Neck exam: PRESENT: full ROM. ABSENT: carotid bruit, JVD, lymphadenopathy, thyromegaly Respiratory exam: PRESENT: clear to auscultation rj Cardiovascular exam: PRESENT: RRR. ABSENT: diastolic murmur, rubs, systolic murmur Pulses: PRESENT: normal dorsalis pedis pul, +2 pedal pulses bilateral Vascular exam: PRESENT: normal capillary refill GI/Abdominal exam: PRESENT: normal bowel sounds, soft. ABSENT: distended, guarding, mass, organolmegaly, rebound, tenderness Rectal exam: PRESENT: deferred Extremities exam: ABSENT: pedal edema Musculoskeletal exam: PRESENT: ambulatory Neurological exam: PRESENT: alert, awake, oriented to person, oriented to place, oriented to time, oriented to situation, CN II-XII grossly intact. ABSENT: motor sensory deficit Psychiatric exam: PRESENT: appropriate affect, normal mood. ABSENT: homicidal ideation, suicidal ideation Skin exam: PRESENT: dry, intact, warm. ABSENT: cyanosis, rash Results Laboratory Results: 04/15/19 05:42 04/15/19 05:42 04/15/19 05:23 Magnesium 1.6 04/14/19 14:50 Clean Catch Midstream Urine Culture - Final Mixed Urogenital Mara 04/14/19 09:10 Troponin I < 0.012 Impressions: Abdomen/Pelvis CT 04/14/19 10:27 IMPRESSION: Diverticulosis without evidence of diverticulitis. Assessment & Plan - Diagnosis (1) Intractable vomiting Qualifiers: Vomiting type: unspecified Nausea presence: with nausea Qualified Code (s): R11.2 - Nausea with vomiting, unspecified Is this a current diagnosis for this admission?: Yes Plan: Currently all resolving continues to PPI (2) Breast cancer, right breast Qualifiers: Breast location: upper outer quadrant of breast Estrogen receptor status: positive Patient sex: female Qualified Code(s): C50.411 - Malignant neoplasm of upper-outer quadrant of right female breast; Z17.0 - Estrogen receptor positive status [ER+] Is this a current diagnosis for this admission?: Yes Plan: Oncology (3) Gastroenteritis Is this a current diagnosis for this admission?: Yes Plan: Currently all resolving (4) HTN (hypertension) Qualifiers: Hypertension type: essential hypertension Qualified Code(s): I10 - Essential (primary) hypertension Is this a current diagnosis for this admission?: Yes Plan: Currently all stable (5) Chronic back pain Is this a current diagnosis for this admission?: Yes - Time Time Spent with patient: 15-24 minutes Medications reviewed and adjusted accordingly: Yes Anticipated discharge: Home Within: Other - Plan Summary Plan Summary: Advance the p.o. diet Cut down the IV fluid Repeat the blood work in the morning Physical therapy evaluations
[2019-04-16] MEDS: GABAPENTIN 100 MG CAPSULE PO SCH ×2 (09:55→17:12)
[2019-04-16] MEDS: ENOXAPARIN SODIUM INJ 40 MG/0.4 ML DISP.SYRIN SUBCUT SCH (09:55)
[2019-04-16] MEDS: AMLODIPINE BESYLATE 5 MG TABLET PO SCH (09:56)
[2019-04-16] MEDS: FLUTICASONE NASAL SPRAY 50 MCG/SPRY 120 SPRAY/16 GM NASL SCH (09:56)
[2019-04-16] MEDS: LETROZOLE 2.5 MG TABLET PO SCH (09:56)
[2019-04-16] MEDS: NYSTATIN TOPICAL POWDER 15 GM TP SCH ×2 (09:57→17:12)
[2019-04-16] MEDS: CEFTRIAXONE SODIUM 1,000 MG in DEXTROSE 5%-WATER 50 ML IV SCH (11:30)
[2019-04-16] MEDS ORDERED: DEXTROSE 40% GEL 15 GM TUBE PO PRN ×2 (15:02)
[2019-04-16] MEDS ORDERED: GLUCAGON,HUMAN RECOMB 1 MG INJ SUBCUT PRN (15:02)
[2019-04-16] MEDS ORDERED: DEXTROSE 50%-WATER 25 GM/50 ML DISP.SYRIN IV PRN ×2 (15:02)
--- NOTE | 2019-04-16 15:10 | PDOC CONSULTATION ---
Consultation Consult Date: 04/16/19 Provider Consulted: PRETTY STOCK Consult reason:: nausea and vomiting. heme positive stools. gastroeneterits History of Present Illness Admission Date/PCP: 04/14/19 12:47 FRANCOIS GOODMAN MD History of Present Illness: ELLIOT WANG is a 83 year old female patient was admitted on Dr Goodman's service over the weekend patient had heme positive stools has nausea and vomiting initial felt to be gastroenteritis patient had colonoscopy done in [place] unknown findings patient states other family members had same meal but did not have symptoms I have been asked to perform EGD Past Medical History Cardiac Medical History: Reports: Hypertension Denies: Myocardial Infarction Pulmonary Medical History: Denies: Asthma Neurological Medical History: Denies: Seizures Malignancy Medical History: Reports: Breast Cancer GI Medical History: Denies: Hepatitis, Hiatal Hernia Psychiatric Medical History: Denies: Depression Hematology: Reports: Anemia Denies: Sickle Cell Disease Past Surgical History Past Surgical History: Denies: Amputation, Hysterectomy, Mastectomy, Pacemaker Social History Smoking Status: Former Smoker Frequency of Alcohol Use: Social Hx Recreational Drug Use: No Drugs: None Hx Prescription Drug Abuse: No - Advance Directive Resuscitation Status: Full Code Family History Family History: Reviewed & Not Pertinent Parental Family History Reviewed: Yes Children Family History Reviewed: Unknown Sibling(s) Family History Reviewed.: Unknown Medication/Allergy Home Medications: Acetaminophen [Tylenol Extra Strength 500 mg Tablet] 500 mg PO Q6HP PRN 04/14/19 Amlodipine Besylate [Norvasc 5 mg Tablet] 5 mg PO DAILY 04/14/19 Ergocalciferol (Vitamin D2) [Drisdol 50,000 unit (1.25MG) Capsule] 50,000 unit PO TU 04/14/19 Fluticasone Propionate [Flonase Nasal [place] 50 Mcg/[place] 16 gm] 2 sprays NASL DAILY 04/14/19 Gabapentin [Neurontin 100 mg Capsule] 200 mg PO BID 04/14/19 Letrozole [Femara 2.5 mg Tablet] 2.5 mg PO DAILY 04/14/19 Nystatin 1 applic TOP BIDP PRN 04/14/19 Allergies/Adverse Reactions: Sulfa (Sulfonamide Antibiotics) Allergy (Verified 04/14/19 10:45) Review of Systems Constitutional: ABSENT: fever(s), headache(s), night sweats Eyes: ABSENT: visual disturbances Ears: ABSENT: hearing changes Nose, Mouth, and Throat: ABSENT: mouth pain, sore throat Cardiovascular: ABSENT: orthropnea, palpitations Respiratory: ABSENT: dyspnea, hemoptysis Gastrointestinal: ABSENT: dysphagia, hematemesis, melena Genitourinary: ABSENT: dysuria, hematuria Musculoskeletal: ABSENT: deformity, joint swelling Integumentary: ABSENT: lesions, pruritus Neurological: ABSENT: syncope, tingling, tremor(s), vertigo Endocrine: ABSENT: polydipsia, polyphagia, polyuria Hematologic/Lymphatic: ABSENT: easy bruising Physical Exam Vital Signs: Temp Pulse Resp BP Pulse Ox 98.4 F 154 H 17 125/71 97 04/16/19 11:39 04/16/19 11:39 04/16/19 11:39 04/16/19 11:39 04/16/19 11:39 Intake & Output 04/15/19 04/16/19 04/17/19 06:59 06:59 06:59 Intake Total 2000 2410 520 Output Total 200 500 Balance 1800 1910 520 Weight 84.6 kg 84.6 kg General appearance: PRESENT: no acute distress, well-developed, well-nourished Head exam: PRESENT: atraumatic, normocephalic Eye exam: PRESENT: EOMI, PERRLA. ABSENT: nystagmus, scleral icterus Mouth exam: PRESENT: moist, neck supple Throat exam: ABSENT: tonsillar exudate, tonsillogmegaly Neck exam: ABSENT: meningismus, tenderness, thyromegaly Respiratory exam: PRESENT: symmetrical, unlabored. ABSENT: tachypnea, wheezes Cardiovascular exam: PRESENT: RRR, +S1, +S2 GI/Abdominal exam: PRESENT: soft. ABSENT: rebound, rigid, tenderness Extremities exam: ABSENT: joint swelling, pedal edema Musculoskeletal exam: PRESENT: full ROM Neurological exam: PRESENT: oriented to time, oriented to situation, reflexes normal, CN II-XII grossly intact Focused psych exam: ABSENT: restlessness Skin exam: PRESENT: normal color. ABSENT: mottled, pallor, urticaria, vesicles Results Laboratory Results: 04/15/19 05:42 04/15/19 05:42 04/15/19 05:23 Magnesium 1.6 04/14/19 14:50 Clean Catch Midstream Urine Culture - Final Mixed Urogenital Mara 04/14/19 09:10 Troponin I < 0.012 Impressions: Abdomen/Pelvis CT 04/14/19 10:27 IMPRESSION: Diverticulosis without evidence of diverticulitis. Assessment & Plan - Diagnosis (1) Nausea & vomiting Plan: will need EGD Risks, benefits and alternatives are discussed with the patient in detail further recommendations to follow may have had a Anne-Marie Schrader tear following nausea and vomiting will need to get findings of previous colonoscopy to see if patient will need probably can proceed with that as outpatient if EGD is negative spoke with Dr Goodman - Time Time Spent: 50 to 70 Minutes
[2019-04-16] MEDS: ONDANSETRON HCL INJ/PF 4 MG/2 ML SDV IV PRN (22:53)
[2019-04-17] MEDS: ACETAMINOPHEN 325 MG TABLET PO PRN (06:26)
[2019-04-17] MEDS: PANTOPRAZOLE SODIUM 40 MG TABLET.DR PO SCH (06:26)
[2019-04-17 06:39] LABS: ABSOLUTE MONOCYTES (AUTO) 0.7 10^3/uL (0.1-1.4); ABSOLUTE NEUT (AUTO) 6.1 10^3/uL (1.7-8.2); BASOPHILS % (AUTO) 0.1 % (0-2); EOSINOPHILS % (AUTO) 0.4 % (0-6); HEMATOCRIT 35.5 % (36.0-47.0); HEMOGLOBIN 11.8 g/dL (12.0-15.5); LYMPHOCYTES % (AUTO) 12.3 % (13-45); MEAN CORPUSCULAR HGB CONC 33.3 g/dL (32.0-36.0); MEAN CORPUSCULAR VOLUME 108 fl (80-97); MONOCYTES % (AUTO) 9.1 % (3-13); PLATELET COUNT 159 10^3/uL (150-450); RED BLOOD COUNT 3.29 10^6/uL (3.72-5.28); RED CELL DISTRIBUTION WIDTH 12.8 % (11.5-14.0); SEGMENTED NEUTROPHILS % (AUTO) 78.1 % (42-78); TOTAL CELLS COUNTED % (AUTO) 100 %; WHITE BLOOD COUNT 7.8 10^3/uL (4.0-10.5)
[2019-04-17 06:57] LABS: ALANINE AMINOTRANSFERASE 15 U/L (9-52); ALBUMIN 3.5 g/dL (3.5-5.0); ALKALINE PHOSPHATASE 53 U/L (38-126); ANION GAP 12 (5-19); ASPARTATE AMINO TRANSFERASE 13 U/L (14-36); BILIRUBIN,DIRECT 0.4 mg/dL (0.0-0.4); BILIRUBIN,TOTAL 0.5 mg/dL (0.2-1.3); BLOOD UREA NITROGEN 18 mg/dL (7-20); CARBON DIOXIDE 19 mmol/L (22-30); CHLORIDE 111 mmol/L (98-107); GLUCOSE 92 mg/dL (75-110); POTASSIUM 4.1 mmol/L (3.6-5.0); SODIUM 141.8 mmol/L (137-145)
[2019-04-17 07:18] LABS: CALCIUM 7.2 mg/dL (8.4-10.2)
--- NOTE | 2019-04-17 08:21 | PDOC PROGRESS REPORT ---
Subjective Progress Note for:: 04/17/19 Subjective:: Patient is feeling much better, and is very anxious to go home. She has not been able to sleep on the hospital mattress. Her stool is now black, but otherwise, she is tolerating diet and having no further diarrhea. She remains on her letrazole. Reason For Visit: INTRACTABKLE NAUSEA AND VOMITING; GASTROENTERITIS; Physical Exam Vital Signs: Temp Pulse Resp BP Pulse Ox 97.8 F 159 H 14 137/80 H 97 04/17/19 07:49 04/17/19 07:49 04/17/19 07:49 04/17/19 07:49 04/17/19 07:49 Intake & Output 04/16/19 04/17/19 04/18/19 06:59 06:59 06:59 Intake Total 2410 1250 Output Total 500 Balance 1910 1250 Weight 84.6 kg 65.1 kg General appearance: PRESENT: well-developed, well-nourished Head exam: PRESENT: normocephalic Respiratory exam: PRESENT: unlabored Neurological exam: PRESENT: alert, awake Psychiatric exam: PRESENT: appropriate affect Skin exam: PRESENT: normal color Results Laboratory Results: 04/17/19 06:01 04/17/19 06:01 04/17/19 04/17/19 06:01 06:01 WBC 7.8 RBC 3.29 L Hgb 11.8 L Hct 35.5 L MCV 108 H MCH 36.0 H MCHC 33.3 RDW 12.8 Plt Count 159 Seg Neutrophils % 78.1 H Lymphocytes % 12.3 L Monocytes % 9.1 Eosinophils % 0.4 Basophils % 0.1 Absolute Neutrophils 6.1 Absolute Lymphocytes 1.0 Absolute Monocytes 0.7 Absolute Eosinophils 0.0 Absolute Basophils 0.0 Sodium 141.8 Potassium 4.1 Chloride 111 H Carbon Dioxide 19 L Anion Gap 12 BUN 18 Creatinine 0.75 Est GFR ( Amer) > 60 Est GFR (Non-Af Amer) > 60 Glucose 92 Calcium 7.2 L Total Bilirubin 0.5 AST 13 L ALT 15 Alkaline Phosphatase 53 Total Protein 6.0 L Albumin 3.5 04/14/19 09:10 Troponin I < 0.012 Impressions: Abdomen/Pelvis CT 04/14/19 10:27 IMPRESSION: Diverticulosis without evidence of diverticulitis. Assessment & Plan - Diagnosis (1) Breast cancer, right breast Qualifiers: Breast location: upper outer quadrant of breast Estrogen receptor status: positive Patient sex: female Qualified Code(s): C50.411 - Malignant neoplasm of upper-outer quadrant of right female breast; Z17.0 - Estrogen receptor positive status [ER+] Is this a current diagnosis for this admission?: Yes Plan: Continue Letrazole without changes. Further follow-up as outpatient. (2) Gastroenteritis Is this a current diagnosis for this admission?: Yes Plan: Improved. Consider checking stool for blood prior to discharge, but HGB remains stable. - Plan Summary Plan Summary: OK for discharge from my standpoint. I will continue to follow her as previously scheduled in my office. Please call if anything further.
[2019-04-17] MEDS ORDERED: ERGOCALCIFEROL (VITAMIN D2) 50000 UNIT (1.25 MG) CAPSULE PO SCH (10:00)
[2019-04-17 10:09] VITALS: BP 157/91
--- NOTE | 2019-04-17 11:44 | PDOC DISCHARGE SUMMARY ---
General - Admit/Disc Date/PCP Admission Date/Primary Care Provider: 04/14/19 12:47 FRANCOIS DOMINGUEZ MD Discharge Date: 04/17/19 - Discharge Diagnosis (1) Intractable vomiting Is this a current diagnosis for this admission?: Yes Summary: Currently all resolved (2) Breast cancer, right breast Is this a current diagnosis for this admission?: Yes Summary: Follow with oncology (3) Gastroenteritis Is this a current diagnosis for this admission?: Yes Summary: Currently all resolved (4) HTN (hypertension) Is this a current diagnosis for this admission?: Yes Summary: Currently all stable (5) Chronic back pain Is this a current diagnosis for this admission?: Yes - Additional Information Resuscitation Status: Full Code Discharge Diet: Regular Discharge Activity: Activity As Tolerated Prescriptions: Omeprazole 40 mg PO DAILY #30 capsule. Home Medications: Acetaminophen [Tylenol Extra Strength 500 mg Tablet] 500 mg PO Q6HP PRN 04/14/19 Amlodipine Besylate [Norvasc 5 mg Tablet] 5 mg PO DAILY 04/14/19 Ergocalciferol (Vitamin D2) [Drisdol 50,000 unit (1.25MG) Capsule] 50,000 unit PO TU 04/14/19 Fluticasone Propionate [Flonase Nasal [place] 50 Mcg/[place] 16 gm] 2 sprays NASL DAILY 04/14/19 Gabapentin [Neurontin 100 mg Capsule] 200 mg PO BID 04/14/19 Letrozole [Femara 2.5 mg Tablet] 2.5 mg PO DAILY 04/14/19 Nystatin 1 applic TOP BIDP PRN 04/14/19 Omeprazole 40 mg PO DAILY #30 capsule. 04/17/19 History of Present Illness History of Present Illness: ELLIOT WANG is a 83 year old female This is a 83-year-old female's with his medical problem above admitting in the hospital for the abdominal pain nausea vomiting diagnosed with possible gastroenteritis Hospital Course Hospital Course: This is a 83-year-old female is presenting the emergency department with complaints of abdominal pain nausea vomiting controlled with a CT scan of the abdomen pelvis suggested diverticulosis but no acute findings Patient was treated with the IV fluids and the patient's response very well Patient is having no active GI bleed but still guaiac was positive and GI was consulted Patient is refused for endoscopy and further evaluation at this point Patient hemoglobin remained stable Patient seen by the oncologist no side effects from the medications Patient is expressed to go home's and discussed with the patient has minimal in the patient's current condition and a follow outpatients Patient seen any blood in the stool any black stool following the ER According to the home health and physical therapy We will repeat the CBC and Chem-7 in the office Physical Exam Vital Signs: Temp Pulse Resp BP Pulse Ox 97.8 F 159 H 14 157/91 H 97 04/17/19 10:07 04/17/19 10:07 04/17/19 10:07 04/17/19 10:07 04/17/19 10:07 Intake & Output 04/16/19 04/17/19 04/18/19 06:59 06:59 06:59 Intake Total 2410 1250 Output Total 500 Balance 1910 1250 Weight 84.6 kg 65.1 kg General appearance: PRESENT: no acute distress, well-developed, well-nourished Head exam: PRESENT: atraumatic, normocephalic Eye exam: PRESENT: conjunctiva pink, EOMI, PERRLA. ABSENT: scleral icterus Ear exam: PRESENT: normal external ear exam Mouth exam: PRESENT: moist, tongue midline Neck exam: PRESENT: full ROM. ABSENT: carotid bruit, JVD, lymphadenopathy, thyromegaly Respiratory exam: PRESENT: clear to auscultation rj Cardiovascular exam: PRESENT: RRR. ABSENT: diastolic murmur, rubs, systolic murmur Pulses: PRESENT: normal dorsalis pedis pul, +2 pedal pulses bilateral Vascular exam: PRESENT: normal capillary refill GI/Abdominal exam: PRESENT: normal bowel sounds, soft. ABSENT: distended, guarding, mass, organolmegaly, rebound, tenderness Rectal exam: PRESENT: deferred Musculoskeletal exam: PRESENT: ambulatory Neurological exam: PRESENT: alert, awake, oriented to person, oriented to place, oriented to time, oriented to situation, CN II-XII grossly intact. ABSENT: mot or sensory deficit Psychiatric exam: PRESENT: appropriate affect, normal mood. ABSENT: homicidal ideation, suicidal ideation Skin exam: PRESENT: dry, intact, warm. ABSENT: cyanosis, rash Results Laboratory Results: 04/17/19 06:01 04/17/19 06:01 04/17/19 04/17/19 06:01 06:01 WBC 7.8 RBC 3.29 L Hgb 11.8 L Hct 35.5 L MCV 108 H MCH 36.0 H MCHC 33.3 RDW 12.8 Plt Count 159 Seg Neutrophils % 78.1 H Lymphocytes % 12.3 L Monocytes % 9.1 Eosinophils % 0.4 Basophils % 0.1 Absolute Neutrophils 6.1 Absolute Lymphocytes 1.0 Absolute Monocytes 0.7 Absolute Eosinophils 0.0 Absolute Basophils 0.0 Sodium 141.8 Potassium 4.1 Chloride 111 H Carbon Dioxide 19 L Anion Gap 12 BUN 18 Creatinine 0.75 Est GFR ( Amer) > 60 Est GFR (Non-Af Amer) > 60 Glucose 92 Calcium 7.2 L Total Bilirubin 0.5 AST 13 L ALT 15 Alkaline Phosphatase 53 Total Protein 6.0 L Albumin 3.5 04/14/19 09:10 Troponin I < 0.012 Impressions: Abdomen/Pelvis CT 04/14/19 10:27 IMPRESSION: Diverticulosis without evidence of diverticulitis. Qualifiers - * PATIENT BEING DISCHARGED WITH ANY OF THE FOLLOWING DIAGNOSIS: No VTE patient discharged on overlapping Therapy?: Yes Acute Heart Failure - Is this a Heart Failure Patient?: No LVEF < 40%?: No- if no continue to question #3 3. Anticoagulant therapy for permanect/persistent/paraoxysmal Afib or Aflutter: N/A Reason(s) not discharged on anticoagulant therapy for permanect/persistent/paraoxysmal Afib or Aflutter: Other Follow-up Appointment scheduled within 7 days?: Yes Plan Time Spent: Greater than 30 Minutes - Follow in office 1 week repeat the CBC and Chem-7 will be referred to the GI outpatient again the patient's wants to further evaluations
== END 2019-04-17 10:24 | disposition home health service (06) | DRG 392 ==
LOC: ER 08:52 → EH 12:47 → 4S 14:04
PROVIDERS: ADMIT Family Medicine; ATTEND Family Medicine
DX: K52.9 Noninfective gastroenteritis and colitis, unspecified (principal); I10 Essential (primary) hypertension; D63.8 Anemia in other chronic diseases classified elsewhere; G89.29 Other chronic pain; M54.9 Dorsalgia, unspecified; K57.30 Diverticulosis of large intestine without perforation or abscess without bleeding; C50.411 Malignant neoplasm of upper-outer quadrant of right female breast; Z79.899 Other long term (current) drug therapy; Z87.891 Personal history of nicotine dependence; Z88.2 Allergy status to sulfonamides; Z17.0 Estrogen receptor positive status [ER+]
CPT/HCPCS: 36415; 74177; 80048; 80053; 80076; 81001; 83735; 84484; 85025; 86850; 86900; 86901; 87086; 93005; 93010; 96361; 96374; 96375; 99285; J0696; J1650; J2405; J3480; J3490; J7030; J7060; S0164

== ENCOUNTER 2019-10-08 12:45 | Emergency (ER) | payer MEDICARE ==
--- NOTE | 2019-10-08 13:04 | ER Document Report ---
ED Medical Screen (RME) - General Chief Complaint: Head Injury Stated Complaint: HEAD INJURY Time Seen by Provider: 10/08/19 12:56 Primary Care Provider: AMANDA GILL PA [Primary Care Provider] - Follow up as needed Mode of Arrival: Wheelchair Information source: Patient, Relative Notes: Patient presents from primary care provider's office. Patient has been seen today for cold symptoms. Family also states that she had had some difficulty with her thoughts and has been feeling generally weak. Her provider ordered labs and a urine on outpatient basis as well as a CT scan. Patient did acknowledge that she had fallen in the shower 3 to 4 weeks ago hitting her head. Patient had an outpatient CT scan which showed subdural hematoma. Family states that patient is occasionally confused although is able to ambulate. I have greeted and performed a rapid initial assessment of this patient. A comprehensive ED assessment and evaluation of the patient, analysis of test results and completion of the medical decision making process will be conducted by additional ED providers. TRAVEL OUTSIDE OF THE [place] IN LAST 30 DAYS: No - Related Data Allergies/Adverse Reactions: Sulfa (Sulfonamide Antibiotics) Allergy (Verified 04/14/19 10:45) Past Medical History - Past Medical History Cardiac Medical History: Reports: Hx Hypertension Denies: Hx Heart Attack Pulmonary Medical History: Denies: Hx Asthma Neurological Medical History: Denies: Hx Cerebrovascular Accident, Hx Seizures Renal/ Medical History: Denies: Hx Peritoneal Dialysis Malignancy Medical History: Reports: Hx Breast Cancer GI Medical History: Denies: Hx Hepatitis, Hx Hiatal Hernia, Hx Ulcer Psychiatric Medical History: Denies: Hx Depression Infectious Medical History: Denies: Hx Hepatitis Past Surgical History: Denies: Hx Hysterectomy, Hx Mastectomy, Hx Open Heart Surgery, Hx Pacemaker - Immunizations Hx Diphtheria, Pertussis, Tetanus Vaccination: Yes Physical Exam - Vital signs Vitals: Temp Pulse Resp BP Pulse Ox 98.2 F 92 20 149/81 H 93 10/08/19 12:55 10/08/19 12:55 10/08/19 12:55 10/08/19 12:55 10/08/19 12:55 - General General appearance: Alert - Neurological Cognition: Confused [place] Coma Scale Eye Opening: Spontaneous [place] Coma Scale Verbal: Confused [place] Coma Scale Motor: Obeys Commands [place] Coma Scale Total: 14 Course - Vital Signs Vital signs: Temp Pulse Resp BP Pulse Ox 98.2 F 92 20 149/81 H 93 10/08/19 12:55 10/08/19 12:55 10/08/19 12:55 10/08/19 12:55 10/08/19 12:55 Doctor's Discharge - Discharge Referrals: AMANDA GILL PA [Primary Care Provider] - Follow up as needed
--- NOTE | 2019-10-08 13:49 | ER Document Report ---
ED General - General Chief Complaint: Head Injury Stated Complaint: HEAD INJURY Time Seen by Provider: 10/08/19 12:56 Primary Care Provider: AMANDA GILL PA [Primary Care Provider] - Follow up as needed Mode of Arrival: Wheelchair TRAVEL OUTSIDE OF THE [place] IN LAST 30 DAYS: No - HPI Notes: Mrs. Laura Rodriguez is an 84-year-old female with a chief complaint of abnormal head CT with presence of subdural hematoma. The patient has been fully ambulatory and living at home with her . She was seen by her family physician, Dr. Goodman, in the office earlier today with family reporting that she has had several falls recently and they had also noted some subtle changes in her mentation and thought she was perhaps developing early dementia. Dr. [facility] for an outpatient head CT which is demonstrated a large left-sided subdural hematoma. She was sent to the emergency department for further evaluation. reports that the patient fell in the bathtub at home about 2 weeks ago. No reported loss of consciousness. Very gradual deterioration in her mentation is been noted since that time. and son particularly note that she has a halting speech pattern and seems to have difficulty doing calculations to balance her checkbook now. They have also noticed some very minimal gait instability. The patient apparently had a fracture of the pelvis over a year ago and since rehabilitation from that condition she had a band in the use of a quad cane. She has however started using that again within the last several days. The patient denies any headache, nausea or vomiting. She denies any changes in eyesight or swallowing. Family says she has not however had a good appetite within the last week. The patient is not taking aspirin or any type of blood thinning agent per family. Pertinent prior history: History of hypertension. Remote history of breast cancer. Previous history of pelvic fracture. Patient is not diabetic. No reported prior history of stroke or TIA. Patient is a former smoker. She has not smoked in many years. Rare social alcohol consumption. Family reports that they want FULL RESUSCITATIVE MEASURES and I do not place any restrictions on procedures for the patient. - Related Data Allergies/Adverse Reactions: No Known Allergies Allergy (Verified 10/08/19 14:11) Past Medical History - General Information source: Patient, Relative - Social History Smoking Status: Former Smoker Family History: Reviewed & Not Pertinent - Past Medical History Cardiac Medical History: Reports: Hx Hypertension Denies: Hx Heart Attack Pulmonary Medical History: Denies: Hx Asthma Neurological Medical History: Denies: Hx Cerebrovascular Accident, Hx Seizures Renal/ Medical History: Denies: Hx Peritoneal Dialysis Malignancy Medical History: Reports: Hx Breast Cancer GI Medical History: Denies: Hx Hepatitis, Hx Hiatal Hernia, Hx Ulcer Psychiatric Medical History: Denies: Hx Depression Infectious Medical History: Denies: Hx Hepatitis Past Surgical History: Denies: Hx Hysterectomy, Hx Mastectomy, Hx Open Heart Surgery, Hx Pacemaker - Immunizations Hx Diphtheria, Pertussis, Tetanus Vaccination: Yes Review of Systems - Review of Systems Notes: Constitutional: Negative for fever. HENT: Negative for sore throat. Eyes: Negative for visual changes. Cardiovascular: Negative for chest pain. Respiratory: Negative for shortness of breath. Gastrointestinal: Negative for abdominal pain, vomiting or diarrhea. Genitourinary: Negative for dysuria. Musculoskeletal: Negative for back pain. Skin: Negative for rash. Neurological: As per HPI. 10 point ROS negative except as marked above and in HPI. Physical Exam - Vital signs Vitals: Temp Pulse Resp BP Pulse Ox 98.2 F 92 20 149/81 H 93 10/08/19 12:55 10/08/19 12:55 10/08/19 12:55 10/08/19 12:55 10/08/19 12:55 - Notes Notes: GENERAL: Well-developed well-nourished elderly female exhibiting mild confabulation and a slightly halting speech pattern. SKIN: Good turgor no rashes. HEAD: Normocephalic atraumatic. EYES: PERRLA. EOMI conjunctivae and sclerae clear. EARS: CANALS AND TMS CLEAR. NOSE: CLEAR. MOUTH: Moist mucosa. Good dentition. No stridor or edema. No drooling. Throat: Clear. NECK: Supple. No tenderness. No masses or thyromegaly. No adenopathy. Carotids 2+ without bruits. No JVD. BACK: Symmetrical without tenderness. CHEST: Respirations unlabored. Breath sounds clear and symmetrical. HEART: Frequent extrasystoles. No murmur gallop or rub. ABDOMEN: Soft nontender without masses, organomegaly or rebound. Bowel sounds normally active. No bruits. GENITALIA: Deferred. EXTREMITIES: Advanced degenerative changes in her phalangeal joints of both hands. No edema. No calf tenderness. Cap refill less than 1.5 seconds. Dorsalis pedis and posterior tibial pulses 2+ and symmetrical. NEUROLOGICAL: GCS 14 (eyes open spontaneously, disoriented to time, best motor following commands). Mild confabulation. Gait not tested. Halting speech pattern. Cranial nerves II through XII intact. Sensation grossly intact. Normal tone. Motor testing 5/5 both upper extremities and left lower extremity and 4/5 right lower extremity with minimal drift. Deep tendon reflexes are 1+ and symmetrical. Finger-nose testing shows minimal dysmetria right upper extremity. Course - Re-evaluation Re-evalutation: Report of CT scan of the head without contrast per radiologist: Large hypodense left-sided holohemispheric subdural hematoma measuring up to 2.5 cm's with associated 11 mm left to right midline shift and associated subfalcine herniation. Foramen magnum and ambient cisterns remain patent. CT images reviewed by me. I have explained to the patient and her family members that she needs urgent neurosurgical evaluation and treatment. No neurosurgery available here today. They have requested transfer to [facility]. I spoke with the transfer center at 1358 hrs. and waiting for a call back from Dr. Saúl Arboleda (neurosurgery). CT images have been forwarded to consulting physician. Patient will remain n.p.o. She is on shearer screen measurer and trimmer. Pending labs include CBC comprehensive metabolic profile and coag profile. EKG shows wandering atrial pacemaker. Patient is hemodynamically stable at this time. 10/08/19 14:38 INR is 1.0. Case has been reviewed with Dr. Arboleda and Dr. Patel and patient has been accepted for ALS ground transport to [facility]. EMTALA completed. - Vital Signs Vital signs: Temp Pulse Resp BP Pulse Ox 98.2 F 89 19 132/71 H 100 10/08/19 12:55 10/08/19 13:36 10/08/19 14:02 10/08/19 14:02 10/08/19 14:02 - Laboratory Result Diagrams: 10/08/19 13:54 10/08/19 13:54 Laboratory results interpreted by me: 10/08/19 10/08/19 13:54 13:54 WBC 11.0 H MCV 105 H MCH 35.6 H Lymph % (Auto) 11.1 L Absolute Neuts (auto) 8.7 H Seg Neutrophils % 79.1 H BUN 30 H Critical Care Note - Critical Care Note Total time excluding time spent on procedures (mins): 35 Comments: Subdural hematoma requiring urgent neurosurgical intervention. Patient is to be transferred. Airway appears stable and maintainable at this time. Discharge - Discharge Clinical Impression: Subdural hematoma Condition: Critical Disposition: [facility] Referrals: AMANDA GILL PA [Primary Care Provider] - Follow up as needed
[2019-10-08 14:12] LABS: PROTHROMBIN TIME 13.2 SEC (11.4-15.4)
[2019-10-08 14:13] LABS: PARTIAL THROMBOPLASTIN TIME 30.6 SEC (23.5-35.8)
[2019-10-08 14:16] LABS: ABSOLUTE LYMPHOCYTES (AUTO) 1.2 10^3/uL (0.5-4.7); ABSOLUTE NEUT (AUTO) 8.7 10^3/uL (1.7-8.2); BASOPHILS % (AUTO) 0.2 % (0-2); EOSINOPHILS % (AUTO) 0.2 % (0-6); HEMATOCRIT 40.6 % (36.0-47.0); HEMOGLOBIN 13.8 g/dL (12.0-15.5); LYMPHOCYTES % (AUTO) 11.1 % (13-45); MEAN CORPUSCULAR HEMOGLOBIN 35.6 pg (27.0-33.4); MEAN CORPUSCULAR VOLUME 105 fl (80-97); MONOCYTES % (AUTO) 9.4 % (3-13); PLATELET COUNT 245 10^3/uL (150-450); RED BLOOD COUNT 3.88 10^6/uL (3.72-5.28); RED CELL DISTRIBUTION WIDTH 12.8 % (11.5-14.0); SEGMENTED NEUTROPHILS % (AUTO) 79.1 % (42-78); TOTAL CELLS COUNTED % (AUTO) 100 %
[2019-10-08 14:29] LABS: ALBUMIN 4.3 g/dL (3.5-5.0); ALKALINE PHOSPHATASE 92 U/L (38-126); ANION GAP 13 (5-19); ASPARTATE AMINO TRANSFERASE 22 U/L (14-36); BILIRUBIN,DIRECT 0.4 mg/dL (0.0-0.4); BLOOD UREA NITROGEN 30 mg/dL (7-20); CALCIUM 8.9 mg/dL (8.4-10.2); CARBON DIOXIDE 26 mmol/L (22-30); CHLORIDE 102 mmol/L (98-107); CREATINE KINASE 37 U/L (30-135); GLUCOSE 91 mg/dL (75-110); TOTAL PROTEIN 7.9 g/dL (6.3-8.2)
[2019-10-08 14:41] LABS: CREATINE KINASE MB 0.96 ng/mL (<4.55)
[2019-10-08 14:43] LABS: TROPONIN I < 0.012 ng/mL
[2019-10-08] MEDS ORDERED: DEXAMETHASONE SOD PHOS INJ 10 MG/1 ML VIAL IV ONE (14:44)
[2019-10-08] MEDS ORDERED: LEVETIRACETAM 1000 MG/NACL-ISO 1,000 MG/100 ML RTUPB IV ONE (14:45)
--- NOTE | 2019-10-08 15:00 | RADIOLOGY REPORT (SQ) ---
EXAM DESCRIPTION: CHEST SINGLE VIEW COMPLETED DATE/TIME: 10/08/2019 2:44 pm REASON FOR STUDY: fall, hx of subdural hematoma COMPARISON: None. EXAM PARAMETERS: NUMBER OF VIEWS: One view. TECHNIQUE: Single frontal radiographic view of the chest acquired. RADIATION DOSE: NA LIMITATIONS: None. FINDINGS: LUNGS AND PLEURA: No opacities, masses or pneumothorax. No pleural effusion. MEDIASTINUM AND HILAR STRUCTURES: No masses. Contour normal. HEART AND VASCULAR STRUCTURES: Heart normal in size. Normal vasculature. BONES: No acute findings. HARDWARE: None in the chest. OTHER: No other significant finding. IMPRESSION: NO ACUTE RADIOGRAPHIC FINDING IN THE CHEST. TECHNICAL DOCUMENTATION: JOB ID: [id number] [employer]- All Rights Reserved Reading location - IP/workstation name: [email or web address]
--- NOTE | 2019-10-08 15:07 | EKG REPORT ---
SEVERITY:- BORDERLINE ECG - WANDERING PACEMAKER BORDERLINE PROLONGED QT INTERVAL : Confirmed by: Vanna Ochoa MD 08-Oct-2019 15:06:41
[2019-10-08 18:04] VITALS: BP 158/77
== END 2019-10-08 18:35 | disposition short-term general hospital (02) ==
LOC: ER 12:45
DX: S06.5X9A Traumatic subdural hemorrhage with loss of consciousness of unspecified duration, initial encounter (principal); R41.82 Altered mental status, unspecified; Z91.81 History of falling; W19.XXXA Unspecified fall, initial encounter; I10 Essential (primary) hypertension; Z85.3 Personal history of malignant neoplasm of breast; Z87.891 Personal history of nicotine dependence
CPT/HCPCS: 93005; 99285; 96375; 96365; 36415; 82553; 82550; 85025; 85610; 85730; 80053; 84484; 71045; 93010; J1100; J1953

== ENCOUNTER → 2019-10-08 | Outpatient (CLI) | payer MEDICARE ==
--- NOTE | 2019-10-08 12:31 | RADIOLOGY REPORT (SQ) ---
EXAM DESCRIPTION: CT HEAD WITHOUT COMPLETED DATE/TIME: 10/08/2019 11:57 am REASON FOR STUDY: MEMORY LOSS/INJURY OF HEAD S09.90XA UNSPECIFIED INJURY OF HEAD, INITIAL ENCOUNTER R41.3 OTHER AMNESIA COMPARISON: None. TECHNIQUE: Axial images acquired through the brain without intravenous contrast. Images reviewed wi th bone, brain and subdural windows. Additional sagittal and coronal reconstructions were generated. Images stored on PACS. All CT scanners at this facility use dose modulation, iterative reconstruction, and/or weight based d osing when appropriate to reduce radiation dose to as low as reasonably achievable (ALARA). [facility]: Dose Right [facility]: CareDose [facility]: Dose Right [facility]: Teradose 4D [facility]: Smart codetag RADIATION DOSE: CT Rad equipment meets quality standard of care and radiation dose reduction techniq ues were employed. CTDIvol: 53.2 mGy. DLP: 1044 mGy-cm. mGy. LIMITATIONS: None. FINDINGS: VENTRICLES: Asymmetric effacement of the left lateral ventricle secondary to mass effect. CEREBRUM: There is a large holohemispheric left-sided hypodense extra-axial collection measuring 2.5 cm in greatest maximal dimension compatible with subdural hematoma. There is associated sulcal and l ateral ventricular effacement with approximately 11 mm of left to right midline shift and associated subfalcine herniation. The foramen magnum and ambient cistern remain patent. No evidence of large v ascular territory infarction. Extensive areas of periventricular and subcortical hypoattenuation, li isa sequelae of microangiopathic disease. No discrete mass. CEREBELLUM: No masses. No hemorrhage. No alteration of density. No evidence for acute infarction. EXTRAAXIAL SPACES: Large left holo hemispheric subdural hematoma as above. Calcifications along the falx tentorium and falx cerebri. ORBITS AND GLOBE: No intra- or extraconal masses. Normal contour of globe without masses. Evidence of prior cataract surgery. CALVARIUM: No fracture. PARANASAL SINUSES: Mucosal thickening within the ethmoid air cells, maxillary and sphenoid sinuses. Mastoid air cells are clear. SOFT TISSUES: No mass or hematoma. OTHER: No other significant finding. IMPRESSION: 1. Large hypodense left-sided holo-hemispheric subdural hematoma measuring up to 2.5 cm with associated 11 mm of left to right midline shift and associated subfalcine herniation. Foramen magnum and ambient cisterns remain patent. Recommend neuro surgical consultation. 2. No evidence of acute large vascular territory infarct. Extensive nonspecific white matter change s, likely sequelae of microangiopathic disease. Findings were reported to Kasandra ROSA at 1220 hours on 10/08/2019. EVIDENCE OF ACUTE STROKE: Large hypodense left subdural hematoma. COMMENT: Quality ID # [id number]: Final reports with documentation of one or more dose reduction techniques (e.g., Automated exposure control, adjustment of the mA and/or kV according to patient size, use of iterative reconstruction technique) TECHNICAL DOCUMENTATION: JOB ID: [id number] [employer])- All Rights Reserved Reading location - IP/workstation name: [email or web address]
== END ==
LOC: RAD 11:10
PROVIDERS: ATTEND Physician Assistant
DX: S09.90XA Unspecified injury of head, initial encounter (principal); W19.XXXA Unspecified fall, initial encounter; R41.3 Other amnesia
CPT/HCPCS: 70450

== ENCOUNTER → 2020-01-18 | Outpatient (CLI) | payer MEDICARE ==
--- NOTE | 2020-01-18 12:18 | WOMENS IMAGING REPORT ---
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 LIMITATIONS: None. FINDINGS: LUMBAR SPINE: The bone mineral density (BMD) measured from L1-L4 in the AP projection correlates with a T-score of -2.7, which is osteoporosis as defined by the World Health Organization. BMD Change vs Baseline: -6.7. HIP: The bone mineral density (BMD) measured in the left femoral neck correlates with a T-score of -4.2, w hich is osteopenia as defined by the World Health Organization. BMD Change vs Baseline: -12.3 10 year Fracture Risk Assessment: Major Osteoporotic Fracture: Not available. Hip Fracture: Not available. IMPRESSION: 1. LUMBAR SPINE WHO CLASSIFICATION: OSTEOPOROSIS. 2. HIP WHO CLASSIFICATION: OSTEOPOROSIS. OVERALL ASSESSMENT: WHO CLASSIFICATION: OSTEOPOROSIS. COMMENT: The World Health Organization defines low BMD as follows: T-score: Normal: Greater than -1.0 Osteopenia: Between -1.0 and -2.5 Osteoporosis: Less than -2.5 without fractures Established osteoporosis: Less than -2.5 with fractures In general, you may wish to consider: Diagnosis Treatment Follow-up DEXA Normal BMD Prevention 2-3 years Osteopenia Prevention/Therapy 1-2 years Osteoporosis Therapy Yearly TECHNICAL DOCUMENTATION: JOB ID: [id number] [employer]- All Rights Reserved Reading location - IP/workstation name: [email or web address]
== END ==
LOC: WI 10:17
PROVIDERS: ATTEND Internal Medicine Hematology & Oncology
DX: M81.0 Age-related osteoporosis without current pathological fracture (principal); Z79.811 Long term (current) use of aromatase inhibitors
CPT/HCPCS: 77080